=== PATIENT | female | born 1955 | race Caucasian/White ===

== ENCOUNTER 2016-04-20 08:17 | Day surgery (SDC) | payer BC ==
[2016-04-14 15:55] VITALS: BMI 32.8
[~2016-04-20 08:17] MED LIST: DEXAMETHASONE SOD PHOSPHATE 10 MG/ML 1 ML VIAL IV ONE; LACTATED RINGERS 1,000 ML IV SCH; MIDAZOLAM 2 MG/2 ML VIAL IV PRN; ONDANSETRON 4 MG/2 ML VIAL IVP ONE; ceFAZolin 2 GM in SODIUM CHLORIDE 0.9% 100 ML IVPB ONE
[2016-04-20 08:32] VITALS: RESP 16
[2016-04-20] MEDS ORDERED: LIDOCAINE 1% 20 ML VIAL (10MG/ML) FOR IV START INTRADERMA ONE (08:33)
[2016-04-20] MEDS ORDERED: ALPRAZolam 0.5 MG TAB PO STA (08:42)
[2016-04-20 08:45] LABS: Glucose,Whole Blood 102 mg/dL (75-99)
[2016-04-20] MEDS ORDERED: SODIUM BICARB 4% 5 ML VIAL (0.48 MEQ/ML) MISCELLANE ONE (09:32)
[2016-04-20] MEDS ORDERED: LIDOCAINE 1% INJ 10MG/ML (20 ML MDV) SQ ONE (09:32)
[2016-04-20] MEDS ORDERED: fentaNYL (PF) 50 MCG/ML 2 ML AMP ONE (11:12)
[2016-04-20] MEDS ORDERED: MIDAZOLAM 2 MG/2 ML VIAL ONE (11:12)
[2016-04-20] MEDS ORDERED: LIDOCAINE 1% INJ 10MG/ML (20 ML MDV) ONE (11:12)
[2016-04-20] MEDS ORDERED: PROPOFOL 10 MG/ML 20 ML VIAL IV ONE (11:12)
[2016-04-20] MEDS ORDERED: KETAMINE 10 MG/ML 20 ML VIAL ONE (11:12)
[2016-04-20] MEDS ORDERED: BUPIVACAINE (PF) 0.25% 30 ML VIAL SQ ONE (11:39)
[2016-04-20 12:09] VITALS: TEMP 97
[2016-04-20] MEDS ORDERED: KETOROLAC 30 MG/ML 1 ML VIAL IVP ONE (12:13)
--- NOTE | 2016-04-20 12:14 | P.OP ---
Date of Procedure: 04/20/16 Preoperative Diagnosis: Intraductal papilloma right breast Postoperative Diagnosis: Intraductal papilloma right breast Procedure(s) Performed: Right breast biopsy with needle localization Anesthesia: MAC Surgeon: Андрей Diallo Estimated Blood Loss (ml): 10 Pathology: other (Rt Breast Bx) Condition: stable Disposition: PACU Operative Findings: As above Description of Procedure: Patient had the core biopsy of the right breast mammographic abnormality which proved to be fibrocystic condition with intraductal papilloma. This area was therefore recommended with needle localization and informed consent was obtained procedure having been explained to her including potential complications particular bleeding infection hematoma seroma pain etc. she understood and agreed to proceed. With the patient supine the right breast and chest wall were prepped with Betadine and draped. Local anesthetic Marcaine 0.5% plain was infiltrated into the skin and subcutaneous tissues at the wire insertion site on the lateral aspect of the right breast. At the wire insertion site and deepened through the subcutaneous tissue. Wide excision of the breast tissue around the wire was accomplished. Specimen mammography confirmed the clip and abnormality within the specimen. The wound was irrigated hemostasis was good and the field was dry and hemostasis being secured with electrocautery and 4-0 Vicryl suture ligature. Subcutaneous tissues were then closed with interrupted 4 Vicryl and the skin with 4-0 Monocryl subcuticular suture and Steri-Strips minimal less than 10 amounts the patient remained stable and was transported to the recovery room in good and stable condition.
[2016-04-20 12:22] LABS: Glucose,Whole Blood 115 mg/dL (75-99)
[2016-04-20] MEDS ORDERED: HYDROmorphone 1 MG/ML 1 ML SYRINGE IVP ONE (12:42)
[2016-04-20 13:18] VITALS: BP 123/79; PULSE 68
--- NOTE | 2016-04-20 16:35 | MM ---
EXAMINATION TYPE: MG pre op needle loc RT, MG surgical specimen RT DATE OF EXAM: 04/20/2016 10:16 AM COMPARISON: 01/29/2016 and 02/03/2016 CLINICAL HISTORY: 61-year-old female referred for surgical excision of high risk pathology, papilloma. TECHNIQUE: Needle localization with wire placement and surgical excision of area of concern in the 9:00 right breast. FINDINGS: The procedure of needle localization with wire placement and than surgical excision was explained to the patient. Benefits, alternatives, and risks were discussed. An informed consent was then obtained. The shortest pathway for procedure was chosen. Shortest pathway was a lateral approach. The overlying skin was prepped and draped in usual sterile fashion. Lidocaine buffered with bicarbonate was used as anesthetic into the skin and subcutaneous tissue up to the level of area of concern. A 5 cm needle was used. It was placed via a lateral approach under mammographic guidance. Subsequent 90 degrees mammogram show the needle to be in satisfactory position relative to the targeted area. At this point, wire was placed and the needle was withdrawn. The wire was fixed to patient's skin. Images were marked for surgeon. The patient tolerated the procedure well without any immediate complication. The patient was kept in the radiology department for short stay after the procedure and then taken to surgery for surgical excision. Targeted clip, asymmetry, and wire are identified in specimen mammogram. The patient was kept in hospital for short stay after the procedure and then discharged home in stable condition. IMPRESSION: Successful, uncomplicated needle localization with wire placement and surgical excision of the site of biopsy-proven papilloma in the lateral right breast, full pathology results to follow. Pathology Results: Malignant BREAST, RIGHT, IMAGE GUIDED LOCALIZATION: BIOPSY SITE CHANGE. DUCT ECTASIA. FIBROCYSTIC CHANGE (STROMAL FIBROSIS, CYST FORMATION, AND DUCT HYPERPLASIA). RESIDUAL PAPILLOMA WITH AT LEAST ATYPIA (ADENOSIS AND APOCRINE METAPLASIA). ADDENDUM REPORT A. 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 BIOPSY SITE CHANGES. Recommendation Surgical consult of the right breast. [facility]
== END 2016-04-20 13:46 | disposition home or self-care (01) ==
LOC: OR 08:17
PROVIDERS: ATTEND Surgery
DX: D24.1 Benign neoplasm of right breast (principal); N60.41 Mammary duct ectasia of right breast; N60.01 Solitary cyst of right breast; N60.21 Fibroadenosis of right breast; N60.91 Unspecified benign mammary dysplasia of right breast; N60.81 Other benign mammary dysplasias of right breast; I10 Essential (primary) hypertension; E11.9 Type 2 diabetes mellitus without complications; E07.9 Disorder of thyroid, unspecified; K43.2 Incisional hernia without obstruction or gangrene; Z79.84 Long term (current) use of oral hypoglycemic drugs; Z79.899 Other long term (current) drug therapy
CPT/HCPCS: 19281; 88307; 76098; J2250; J1100; J0690; J2405; J2001; J3010; J1885; J1170; J2704

== ENCOUNTER → 2016-07-08 | Outpatient (CLI) | payer BC ==
[2016-07-08 08:37] LABS: Blood Urea Nitrogen 11 mg/dL (7-17); Non-African American GFR(MDRD) >60 (>60 ml/min/1.73 sqM)
--- NOTE | 2016-07-08 09:40 | CT ---
EXAMINATION TYPE: CT abdomen pelvis w con DATE OF EXAM: 07/08/2016 9:07 AM HISTORY: Recurrent incisional hernia per order. History of 2 hernia surgeries right lower quadrant wi th persistent pain. History of epigastric pain with prior hernia and mesh repair. CT DLP: 1420.8mGycm Automated Exposure Control for Dose Reduction was Utilized. CONTRAST: CT scan of the abdomen and pelvis is performed with IV Contrast, patient injected with 100 mL of Omni paque 300. COMPARISON: None. FINDINGS: LUNG BASES: No significant abnormality is appreciated. LIVER/GB: Several simple appearing thin-walled cysts are scattered throughout the left hepatic lobe. PANCREAS: No significant abnormality is seen. SPLEEN: No significant abnormality is seen. ADRENALS: There is 1.7 x 1.1 cm mass at crux of left adrenal gland on axial image 24. KIDNEYS: No significant abnormality is seen. BOWEL: The oral contrast reaches level of the distal transverse colon. Small hiatal hernia is present . There is no suspicious small or large bowel dilatation. Amount of fecal material is fairly prominen t throughout the transverse and descending colons as well as at level of the rectum. UTERUS/ADNEXA: Uterus is surgically absent or markedly atrophic in appearance. Remnant ovaries are se en near axial image 69. Right ovary is slightly larger in size with low dense 2.2 x 1.9 cm lesion med ially on axial image 68. LYMPH NODES: No greater than 1cm abdominal or pelvic lymph nodes are appreciated. OSSEOUS STRUCTURES: There are bilateral pars defects L5 level. There is grade 1 anterolisthesis of L5 on S1 measured 9 mm. There is moderate to severe disc space narrowing with vacuum disc phenomenon at L4-L5 and L5-S1 levels. Sclerosis L5-S1 level is seen. OTHER: There is curvilinear density consistent with mesh type material in the mid abdomen just right of midline on axial image 51. Just superior to this there is [place] ventral wall hernia measuring approximately 5.2 cm transversely on axial image 47 containing portion of transverse colon. Inferiorly near level of mesh device there is second [place] measuring 2.8 cm transversely small fa t-containing hernia defect on axial image 54. Just below this there is larger midline anterior ventral wall hernia measuring 5.6 cm transversely at level of the lower abdomen/upper pelvis, this contains mesenteric vessels as well as contrast filled small bowel loops, hernia extension to left and and more prominent to the right anterior abdominal w all is present. Craniocaudal extension of this hernia is roughly 10 cm on coronal image 21. Some linear scar tissue just inferior to this extending to right of midline is seen on axial images 7 4 through 78. Just below this there is fourth fat-containing ventral wall hernia in the pelvis extend ing right of midline seen on axial images 80 through 82 though there appears to be overlying density or presumed mesh material superficial to this. IMPRESSION: 1. Multiple ventral wall hernia is as detailed above, 2 most concerning are in the mid abdomen contai shelia portion of transverse colon and at the abdominal pelvis junction where there is largest hernia c ontaining multiple mesenteric vessels and contrast filled small bowel loops. 2. Overall nonobstructive bowel gas pattern. Mild to moderate diffuse colonic fecal stasis is felt pr esent. 3. A 1.7 cm nonspecific left adrenal mass in which neoplasm cannot be excluded. Further investigation with adrenal protocol CT or MRI is advised if there is no outside study for comparison. 4. There is 2.2 cm low dense probable cystic lesion in right ovary, this is abnormal finding for post menopausal female and further investigation with pelvic ultrasound is advised to better evaluate and characterize.
== END | disposition home or self-care (01) ==
LOC: RADCTMAIN 07:49
PROVIDERS: ATTEND Surgery
DX: K43.9 Ventral hernia without obstruction or gangrene (principal); E27.8 Other specified disorders of adrenal gland; Z78.0 Asymptomatic menopausal state; Z88.5 Allergy status to narcotic agent
CPT/HCPCS: 82565; 84520; 74177; 36415; Q9967

== ENCOUNTER → 2016-07-14 | Outpatient (CLI) | payer BC ==
--- NOTE | 2016-07-14 17:21 | US ---
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 1.3 X 1.4 x 1.3 cm echogenic solid nodule at the mid pole with poorly defined margins. This nod ule is wider than tall and shows intranodular vascularity. Prior size: no prior LEFT: # of nodules measured on left: 1 1. 1.4 x 0.7 x 0.7 cm echogenic solid nodule at the lower pole with irregular margins. This nodule is wide as is tall and shows no intranodular vascularity. ISTHMUS: # of nodules measured in the isthmus: 0 Bilateral neck scanned, no evidence of lymphadenopathy. IMPRESSION: Thyroidomegaly with diffuse glandular heterogeneity and scattered nodules felt to reflect multinodula r goiter.
== END | disposition home or self-care (01) ==
LOC: RADUSWWP 14:45
PROVIDERS: ATTEND Internal Medicine
DX: E01.0 Iodine-deficiency related diffuse (endemic) goiter (principal); E04.2 Nontoxic multinodular goiter
CPT/HCPCS: 76536

== ENCOUNTER → 2016-07-30 | Outpatient (CLI) | payer BC ==
--- NOTE | 2016-07-31 07:41 | US ---
EXAMINATION TYPE: US pelvis complete transvag DATE OF EXAM: 07/30/2016 4:24 PM COMPARISON: NONE CLINICAL HISTORY: N83.209 Ovarian Cyst. Partial hysterectomy 30 years ago, right ovarian cyst seen on recent CT TECHNIQUE: Transvaginal (TV) and Transabdominal (TA) Date of LMP: unknown EXAM MEASUREMENTS: Uterus: Surgically absent Endometrial Stripe: Surgically absent Right Ovary: 3.0 x 1.9 x 2.3 cm Left Ovary: 2.5 x 1.9 x 1.5 cm 1. Uterus: Surgically absent, vaginal cuff = 0.8cm 2. Endometrium: Surgically absent 3. Right Ovary: cystic area = 1.7 x 1.5 x 1.9cm 4. Left Ovary: appears wnl as visualized 5. Bilateral Adnexa: wnl IMPRESSION: Postoperative changes. Cyst right ovary.
== END | disposition home or self-care (01) ==
LOC: RADUSWWP 15:53
PROVIDERS: ATTEND Internal Medicine
DX: N83.201 Unspecified ovarian cyst, right side (principal); Z90.710 Acquired absence of both cervix and uterus
CPT/HCPCS: 76830; 76856

== ENCOUNTER → 2016-09-09 | Outpatient (CLI) | payer BC ==
[2016-09-09 17:30] LABS: Blood Urea Nitrogen 16 mg/dL (7-17); Non-African American GFR(MDRD) >60 (>60 ml/min/1.73 sqM)
--- NOTE | 2016-09-09 19:04 | CT ---
EXAMINATION TYPE: CT abdomen pelvis w con DATE OF EXAM: 09/09/2016 COMPARISON: 07/08/2016 HISTORY: 4 weeks post op ventral hernia repair CT DLP: 1594 mGycm Automated exposure control for dose reduction was used. TECHNIQUE: Helical acquisition of images was performed from the lung bases through the pelvis. CONTRAST: Performed with Oral Contrast and with IV Contrast, patient injected with 100 mL of Omnipaque 300. FINDINGS: Lung bases are clear. There is no pleural effusion. There are multiple cysts in the anterior right lo be of the liver. Bile ducts are not dilated. Gallbladder appears normal. There is no sign of pancreat ic mass. Spleen appears normal. There is no adrenal mass. Kidneys show satisfactory contrast opacification. There is no hydronephrosi s. There is no retroperitoneal adenopathy. I see no intestinal wall thickening. There are no dilated loops. Bladder distends smoothly. There is increased density in the subcutaneous fat over the mid and lower anterior abdominal wall. Th ere is a 3 cm cystic fluid collection in the subcutaneous fat in the midline over the lower abdomen. There is fat stranding over the mid and lower anterior abdominal wall. There is a 3 x 1.5 cm fluid co llection in the subcutaneous fat over the lower left side of the abdomen. I see no bony destructive p rocess.: IMPRESSION: MULTIPLE HEPATIC CYSTS ARE STABLE COMPARED TO OLD EXAM. THERE HAS BEEN REDUCTION OF THE LARGE ANTERIOR ABDOMINAL WALL HERNIA COMPARED TO OLD EXAM WITH SOME P OSTSURGICAL CHANGES IN THE LOWER ANTERIOR ABDOMINAL WALL WITH FLUID COLLECTIONS AND FAT STRANDING. TH ERE ARE SMALL SEROMAS OR CHRONIC HEMATOMAS ON THE LOWER ANTERIOR ABDOMINAL WALL. ABSCESS CANNOT BE EN TIRELY EXCLUDED. NO EVIDENCE OF RECURRENT HERNIA.
== END | disposition home or self-care (01) ==
LOC: RADCTMAIN 16:55
PROVIDERS: ATTEND Surgery
DX: K43.9 Ventral hernia without obstruction or gangrene (principal); K76.89 Other specified diseases of liver; Z98.890 Other specified postprocedural states
CPT/HCPCS: 82565; 84520; 74177; 36415; Q9967

== ENCOUNTER 2017-12-25 17:10 | Emergency (ER) | payer BC, OTHER ==
[2017-12-25 17:22] VITALS: BP 154/85; PULSE 63; RESP 20; TEMP 97.8
--- NOTE | 2017-12-25 18:06 | ED ---
General Adult HPI <Nilo Jane - Last Filed: 12/25/17 18:57> - General Source: patient, RN notes reviewed Mode of arrival: ambulatory Limitations: no limitations <Gretchen Tejada - Last Filed: 12/25/17 20:57> - General Chief complaint: Fall Stated complaint: Fall,Right Shoulder/Right Knee - [facility] Time Seen by Provider: 12/25/17 17:46 - History of Present Illness Initial comments: Patient is a 62-year-old female who presents to the emergency Department with complaints of a fall earlier today. She states that she was sweeping the floor and she tripped over a rug she had folded up. She states that she fell on her right knee and her right shoulder hit a shelf. She is mostly concerned about her shoulder at this time and is having trouble moving it. She is having very mild pain in her right knee and is not having any problems with ambulation. She does not want any pain medication at this time. She denies hitting her head or loss of consciousness. Patient denies any recent fever, chills, shortness of breath, chest pain, back pain, abdominal pain, nausea or vomiting, numbness or tingling, headaches or visual changes, or any other complaints. ( Gretchen Tejada) - Related Data Home Medications Medication Instructions Recorded Confirmed Levothyroxine Sodium [Synthroid] 125 mcg PO DAILY 04/14/16 04/20/16 Lisinopril [Prinivil] 10 mg PO DAILY 04/14/16 04/20/16 metFORMIN HCL 1,000 mg PO BID 04/14/16 04/20/16 Previous Rx's Medication Instructions Recorded traMADol HCL [Ultram] 50 mg PO Q4HR PRN #20 tab 04/20/16 traMADol HCL [Ultram] 50 mg PO Q4HR PRN #20 tab 04/20/16 Ibuprofen [Motrin] 600 mg PO Q6HR PRN #40 day 12/25/17 Allergies Allergy/AdvReac Type Severity Reaction Status Date / Time codeine Allergy Itching, Verified 12/25/17 17:21 VOMITING adhesive AdvReac BLISTERING Verified 12/25/17 17:21 RASH Review of Systems ROS Other: All systems not noted in ROS Statement are negative. <Nilo Jane - Last Filed: 12/25/17 18:57> ROS Other: All systems not noted in ROS Statement are negative. <TerrellGretchen E - Last Filed: 12/25/17 20:57> ROS Statement: Those systems with pertinent positive or pertinent negative responses have been documented in the HPI. Past Medical History Past Medical History: Diabetes Mellitus, Hypertension, Thyroid Disorder Additional Past Medical History / Comment(s): POLYP IN RT BREAST MILK DUCT CURRENTLY. History of Any Multi-Drug Resistant Organisms: None Reported Past Surgical History: Hernia Repair, Hysterectomy, Tonsillectomy, Tubal Ligation Additional Past Surgical History / Comment(s): TL REVERSAL. CTR ADRIEL. RT KNEE SCOPE. BIOPSIES ON RT BREAST X2. Past Anesthesia/Blood Transfusion Reactions: No Reported Reaction Past Psychological History: No Psychological Hx Reported Smoking Status: Former smoker Past Alcohol Use History: None Reported Past Drug Use History: None Reported - Past Family History Mother Family Medical History: Cancer <TerrellGretchen E - Last Filed: 12/25/17 20:57> General Exam <Nilo Jane - Last Filed: 12/25/17 18:57> Limitations: no limitations <TerrellGretchen Farnaz - Last Filed: 12/25/17 20:57> - General Exam Comments Initial Comments: General: The patient is awake and alert, in no distress, and does not appear acutely ill. Neck: There is slight tenderness to palpation over the right sided musculature of the neck. No spinal tenderness. Full ROM. Cardiovascular: There is a regular rate and rhythm. No murmur, rub or gallop is appreciated. Respiratory: Lungs are clear to auscultation, respirations are non-labored, breath sounds are equal. No wheezes, stridor, rales, or rhonchi. Musculoskeletal: Patient has difficulty moving her right arm and there is some tenderness to palpation. Left arm full ROM. Bilateral elbows full ROM. Right knee has very slight tenderness to palpation. Full ROM of bilateral knees. Sensation intact. Able to ambulate without difficulty. Neurological: A&O x 3. CN II-XII intact, There are no obvious motor or sensory deficits. Coordination appears grossly intact. Speech is normal. Skin: Skin is warm and dry and no rashes or lesions are noted. Psychiatric: Normal mood and affect. (Gretchen Tejada) Vital Signs 12/25/17 17:20 Temperature 97.8 F Pulse Rate 63 Respiratory 20 Rate Blood Pressure 154/85 O2 Sat by Pulse 98 Oximetry - Medical Decision Making Patient's x-ray of the right shoulder is negative for any acute fracture dislocation. Results were discussed with the patient. Patient is advised follow-up with orthopedic doctor or employee health for further evaluation and possible MRI for her symptoms. Patient did hit right knee but states that she is not worried about any broken bones. She states she believes that she is bruised. She is advised to ice these areas. Advised ibuprofen for pain. Advised return to the emergency room for any other concerns. (Nilo Jane) Disposition Is patient prescribed a controlled substance at d/c from ED?: No Time of Disposition: 18:59 <Nilo Jane - Last Filed: 12/25/17 18:57> <Gretchen Tejada - Last Filed: 12/25/17 20:57> Clinical Impression: Shoulder injury Disposition: HOME SELF-CARE Condition: Good Instructions: Rotator Cuff Injury (ED) Additional Instructions: Please follow-up with [facility] for orthopedic doctor over the next 2 days. Please continue to ice affected area and use ibuprofen for pain. Please return to emergency room for any other concerns. Prescriptions: Ibuprofen [Motrin] 600 mg PO Q6HR PRN #40 day PRN Reason: Pain Referrals: Adriana Guadalupe MD [Primary Care Provider] - 1-2 days Frank Tang MD [Medical Doctor] - 1-2 days
--- NOTE | 2017-12-25 18:51 | XR ---
EXAMINATION TYPE: XR shoulder complete RT DATE OF EXAM: 12/25/2017 CLINICAL HISTORY: Right shoulder pain after fall TECHNIQUE: Three views of the right shoulder are obtained. COMPARISON: None. FINDINGS: There is no acute fracture/dislocation evident in the right shoulder. The acromioclavicul ar and glenohumeral joint spaces are preserved although there is mild capsular hypertrophy and small marginal osteophytes of the acromioclavicular joint indicative of mild arthropathy. The visualized r ibs are intact and unremarkable. IMPRESSION: There is no acute fracture or dislocation in the right shoulder.
== END 2017-12-25 19:02 | disposition home or self-care (01) ==
LOC: EC 17:10
DX: S49.91XA Unspecified injury of right shoulder and upper arm, initial encounter (principal); M25.561 Pain in right knee; I10 Essential (primary) hypertension; E11.9 Type 2 diabetes mellitus without complications; E07.9 Disorder of thyroid, unspecified; Z87.891 Personal history of nicotine dependence; Z88.5 Allergy status to narcotic agent; Z91.048 Other nonmedicinal substance allergy status; Z79.84 Long term (current) use of oral hypoglycemic drugs; Z79.899 Other long term (current) drug therapy; W01.0XXA Fall on same level from slipping, tripping and stumbling without subsequent striking against object, initial encounter; Y92.69 Other specified industrial and construction area as the place of occurrence of the external cause; Y93.89 Activity, other specified; Y99.0 Civilian activity done for income or pay
CPT/HCPCS: 99283

== ENCOUNTER → 2018-01-03 | Outpatient (CLI) | payer OTHER ==
--- NOTE | 2018-01-03 13:11 | XR ---
EXAMINATION TYPE: XR humerus RT DATE OF EXAM: 01/03/2018 CLINICAL HISTORY: Fall injury with pain TECHNIQUE: Two views of the right humerus are obtained. COMPARISON: Right shoulder x-ray from 9 days ago. FINDINGS: There is no acute fracture or dislocation seen in the right humerus. The right shoulder a nd elbow joints appear within normal limits. The overlying soft tissue appears within normal limits. Overlying bra material is present. IMPRESSION: No acute fracture or dislocation is evident in the right humerus.
--- NOTE | 2018-01-03 13:12 | XR ---
EXAMINATION TYPE: XR knee complete RT DATE OF EXAM: 01/03/2018 CLINICAL HISTORY: Fall injury with pain. TECHNIQUE: Three views of the right knee are obtained. COMPARISON: None. FINDINGS: There is no acute fracture/dislocation evident in right knee. There is fairly moderate tri compartment joint space loss with mild to minimal spurring. The overlying soft tissue appears unrema rkable. IMPRESSION: There is no acute fracture or dislocation in the right knee.
== END | disposition home or self-care (01) ==
LOC: RADXRMAIN 12:41
PROVIDERS: ATTEND Emergency Medicine
DX: S40.011D Contusion of right shoulder, subsequent encounter (principal); S80.01XD Contusion of right knee, subsequent encounter

== ENCOUNTER → 2018-01-05 | Outpatient (CLI) | payer OTHER ==
--- NOTE | 2018-01-05 14:23 | MR ---
EXAMINATION TYPE: MR shoulder RT wo con DATE OF EXAM: 01/05/2018 COMPARISON: Plain film 12/25/2017 HISTORY: Contusion of right shoulder, initial TECHNIQUE: Multiplanar, multisequence imaging of the right shoulder is performed without contrast. FINDINGS: Rotator Cuff: There is abnormal signal involving the subscapularis musculotendinous junction, suspect tear, there is discontinuity present at the level of the expected insertion. Fluid signal present al brent the subscapularis muscle. There is a joint effusion. Acromioclavicular Joint: Hypertrophic change present at the acromioclavicular joint causes some minim al mass effect on the musculotendinous junction of supraspinatus Glenohumeral Joint: Proximal humerus somewhat high riding in relation to the bony glenoid. Question p ossible strain or tear to the inferior glenohumeral ligament. Labrum: Subchondral geode formation present in the bony glenoid. Some increased signal in the superio r labrum is suspected, there may be an underlying SLAP lesion Biceps Tendon: The long head of biceps is subluxed medially, . Fluid present along the long head of b iceps tendon Bone marrow signal: Pseudocyst formation present in the humeral head. Other: No additional significant abnormality is appreciated. IMPRESSION: Complete tear of the subscapularis tendon with resulting medial subluxation of the long head of bicep s tendon. Suspect underlying arthropathy with subchondral geode formation at the bony labrum, difficu lt to exclude labral tear. Inferior glenohumeral ligament tear may be present. Additional soft tissue injury as described.
== END ==
LOC: RADMRIMAIN 11:07
PROVIDERS: ATTEND Emergency Medicine
DX: S46.811A Strain of other muscles, fascia and tendons at shoulder and upper arm level, right arm, initial encounter (principal); S43.081A Other subluxation of right shoulder joint, initial encounter

== ENCOUNTER → 2022-04-17 | Outpatient (CLI) | payer BC ==
[2022-04-17 16:55] LABS: African American GFR (CKD) >90 (>60 ml/min/1.73 sqM); Blood Urea Nitrogen 18 mg/dL (7-17); Non-African American GFR(CKD) >90 (>60 ml/min/1.73 sqM)
--- NOTE | 2022-04-17 19:11 | CT ---
EXAMINATION TYPE: CT abdomen pelvis w con CT DLP: 1569.2 mGycm, Automated exposure control for dose reduction was used. DATE OF EXAM: 04/17/2022 5:57 PM COMPARISON: CT abdomen pelvis most recent from 09/09/2016 CLINICAL INDICATION:Female, 67 years old with history of R19.03; right side abd hernia TECHNIQUE: Axial CT of the abdomen and pelvis. Sagittal and coronal reformats were created on a [employer] workstation. Contrast used:100 mL of Isovue 300 with IV Contrast, Oral contrast used: without Oral Contrast FINDINGS: LOWER CHEST: Unremarkable ABDOMEN LIVER: Simple appearing renal cysts. Which are stable back to 2017. GALLBLADDER AND BILE DUCTS: Unremarkable. PANCREAS: Unremarkable. SPLEEN: Unremarkable. ADRENAL GLANDS: 18 mm left adrenal nodule stable back to 2017 and likely benign lipid rich adrenal ad enoma. The right adrenal gland is unremarkable. KIDNEYS AND URETERS: No evidence of hydronephrosis or renal calculus. The ureters are unremarkable. PELVIS BLADDER: Unremarkable REPRODUCTIVE: Right ovarian cyst measuring up to 2.1 cm similar back to 2017. The uterus is surgicall y absent. ABDOMEN & PELVIS STOMACH AND BOWEL: No evidence of bowel obstruction. PERITONEUM/RETROPERITONEUM: No evidence of pneumoperitoneum or free fluid. . VASCULATURE: No evidence of aortic aneurysm. MUSCULOSKELETAL: No acute osseous abnormalities, grade 1 anterolisthesis of L5 on S1. Bilateral spond ylolysis. Multilevel disc degeneration changes of the spine. LYMPH NODES: No gross evidence for lymphadenopathy. SOFT TISSUE/ABDOMINAL WALL: Right upper abdomen broad-based abdominal content herniation along the an terior aspect of the right rib cage containing loop of transverse colon and omental fat. No evidence for obstruction or evidence for strangulation. Postsurgical changes the midline abdominal wall withou t evidence of hernia. IMPRESSION: 1. New from 2017 Right abdominal wall hernia broad necked fat herniation up along the anterior aspect of the right rib cage containing loop of colon and fat. No evidence of obstruction or evidence for s timulation. 2. Similar right ovarian cyst measuring 2.1 cm stable back to 2017. 3. Similar left adrenal gland nodule measuring 18 mm dating back to 2017. This likely represents vini gn lipid rich adrenal adenoma. 4. Grade 1 anterolisthesis of L5 on S1 with bilateral spondylolysis.
== END | disposition home or self-care (01) ==
LOC: RADCTMAIN 15:39
PROVIDERS: ATTEND Internal Medicine
DX: M43.17 Spondylolisthesis, lumbosacral region (principal); K43.9 Ventral hernia without obstruction or gangrene; N83.201 Unspecified ovarian cyst, right side; R19.03 Right lower quadrant abdominal swelling, mass and lump
CPT/HCPCS: 82565; 84520; 74177; 36415; Q9967